=== PATIENT | female | born 1995 | race Caucasian/White ===

== ENCOUNTER → 2020-08-11 | Outpatient (CLI) | payer OTHER ==
[~2020-08-11] MED LIST: ACETAZOLAMIDE250 M1 PO; ASA81BEC PO; ENOXAPARIN80 MG/0.8 SUBQ; IRON325 PO; JANTOVEN6 MG PO; OMEPRAZOLE 20 M20 M1 PO; VITAMIN D325 MC1 PO
== END ==
LOC: M.LAB 13:33
PROVIDERS: ATTEND Surgery
DX: Z01.812 Encounter for preprocedural laboratory examination (principal); Z20.828 Contact with and (suspected) exposure to other viral communicable diseases; R19.00 Intra-abdominal and pelvic swelling, mass and lump, unspecified site

== ENCOUNTER → 2020-08-18 | Day surgery (SDC) | payer OTHER ==
[~2020-08-18] MED LIST changes: +NORCO 10-325 T1 EACH PO
--- NOTE | ~2020-08-18 | OP ---
[facility] [address] [place] [address] OPERATIVE REPORT Name: JUSTIN CASSIDYIANSOILA Santizo Room: [facility]#: [id number] Admission: 08/18/20 Attend Phys: Ivan Bender Discharge: Date of : 89 Report #: [id number] THIS REPORT FOR: //name// cc: Isatu Herr MD, Ghazal A. MD ~ CC: Isatu Bender DATE OF SERVICE: 08/18/2020 PREOPERATIVE DIAGNOSES: 1. Left chest wall mass, 10 x 10 cm. 2. Left medial abdominal wall mass, 5 x 5 cm. 3. Left lateral abdominal wall mass, 5 x 5 cm. POSTOPERATIVE DIAGNOSES: 1. Left chest wall mass, 10 x 10 cm. 2. Left medial abdominal wall mass, 5 x 5 cm. 3. Left lateral abdominal wall mass, 5 x 5 cm. OPERATION: 1. Excision of left chest wall mass, 10 x 10 cm, lipoma. 2. Excision of left medial abdominal wall mass, 5 x 5 cm, lipoma. 3. Excision of left lateral abdominal wall mass, 5 x 5 cm, lipoma. SURGEON: Ivan Bender MD ANESTHESIA: General. ESTIMATED BLOOD LOSS: Minimal. SPECIMENS: 1. Left chest wall mass. 2. Left medial abdominal wall mass. 3. Left lateral abdominal wall mass. DESCRIPTION OF PROCEDURE: After informed consent was obtained, the patient was brought to the operating room and placed supine. SCDs were placed and working, preoperative antibiotics were administered, general anesthesia was induced. The abdomen was prepped and draped in the usual sterile fashion. Area was anesthetized with 1% lidocaine. I first made a 10 cm incision over the left chest wall mass. Cautery dissection was made down through the subcutaneous tissue. This was a large lobular lipoma. This was dissected around with electrocautery. The area was then irrigated after the specimen was removed. Skin was closed with 3-0 Vicryl for the deep layer and 4-0 Monocryl in running subcuticular fashion for the skin. [place] [address] OPERATIVE REPORT Name: DIANE CASSIDY Room: [facility]#: [id number] Admission: 08/18/20 Attend Phys: Ivan Bender Discharge: Date of : 89 Report #: [id number] mass. A 5 cm incision was made. Cautery dissection was made down through the subcutaneous tissue. Mass was excised. This was again a lipoma. Skin was closed again in 2 layers with 3-0 Vicryl and then 4-0 Monocryl. Attention was then directed to the left lateral mass. A 5 cm incision was made. Cautery dissection was made down to the lipoma, which was excised fully. Skin was then closed with a 3-0 Vicryl for the deep layer and 4-0 Monocryl for the skin. Incisions were dressed with Steri-Strips and gauze. Sterile dressings were applied. COMPLICATIONS: None. DISPOSITION: The patient was taken to recovery in satisfactory condition. By: [id number] Bender MD /nt
[2020-08-18 08:19] LABS: HEMATOCRIT 36.2 % (37.0-47.0)
[2020-08-18 08:24] LABS: APTT 26.5 Seconds (25.0-31.3); PROTIME 10.7 Seconds (9.20-11.50)
--- NOTE | 2020-08-20 14:07 | PATH ---
[address] [address] PATHOLOGY RPT PROCEDURE Name: DIANE CASSIDY Room: [facility]#: [id number] Admission: 08/18/20 Date of : 89 Discharge: Report #: [id number] Path Case #: [id number] [facility] Accession Number: [id number] . 01 Material submitted: . PART A: chest - LEFT CHEST WALL MASS. Modifiers: left, wall PART B: abdomen - MEDIAL ABDOMINAL MASS. Modifiers: medial PART C: abdomen - LATERAL ABDOMINAL WALL MASS. Modifiers: lateral, wall . 01 Clinical history: . ABDOMINAL MASS . 02 Diagnosis: A. Left chest wall mass: - Lipoma. . B. Medial abdominal mass: - Consistent with lipoma. . C. Lateral abdominal wall mass: - Consistent with lipoma. (ROBRETO/db; 08/20/2020) LBQ 08/20/2020 1115 Local . 02 Electronically signed: . Blue Dawn MD, Pathologist NPI- [id number] . 01 Gross description: . A. The specimen is received in formalin, labeled "Diane Cassidy, left chest wall mass" and consists of an irregular segment of yellow orange lobulated tissue measuring 12.4 x 9.0 x 3.2 cm. It is inked black and sectioned revealing no gross lesions. Customer Orders Clerk tissue is submitted in A1-A5. . B. The specimen is received in formalin, labeled "Diane Cassidy, medial abdominal mass" and consists of multiple irregular segments of yellow orange lobulated tissue measuring 12.1 x 11.8 x 2.5 cm in aggregate. Sectioning reveals homogeneous yellow orange cut surfaces with no gross lesions. Customer Orders Clerk tissue is submitted in B1-B4. . C. The specimen is received in formalin, labeled "Diane Cassidy, lateral abdominal wall mass" and consists of multiple irregular segments of yellow orange lobulated tissue measuring 7.1 x 5.5 x 2.0 cm. Sectioning reveals homogeneous yellow orange cut surfaces and customer loyalty representative sections are submitted in C1-C2. (LEONARDAY; 08/18/2020) SYU/SYU 08/18/[address] [place] [address] PATHOLOGY RPT PROCEDURE Name: DIANE CASSIDY N Room: [facility]#: [id number] Admission: 08/18/20 Date of : 89 Discharge: Report #: [id number] Path Case #: [id number] . 02 Pathologist provided ICD-10: D17.1 . 02 CPT . 823037, [id number], [id number] Specimen Comment: A courtesy copy of this report has been sent to [phone] Specimen Comment: [phone] Specimen Comment: Report sent to / DR RUIZ Performed at: [address], [place], [place] [id number] MD Franco Dewitt MD Phone: [phone] Performed at: 02 [facility] [address], [place], [place] [id number] MD Blue Dawn MD Phone: [phone]
== END | disposition home or self-care (01) ==
LOC: M.SUR 06:31
PROVIDERS: ATTEND Surgery
DX: D17.1 Benign lipomatous neoplasm of skin and subcutaneous tissue of trunk (principal); R10.9 Unspecified abdominal pain; G43.909 Migraine, unspecified, not intractable, without status migrainosus; F41.9 Anxiety disorder, unspecified; K21.9 Gastro-esophageal reflux disease without esophagitis; F17.210 Nicotine dependence, cigarettes, uncomplicated; Z98.890 Other specified postprocedural states; Z79.899 Other long term (current) drug therapy; Z91.040 Latex allergy status; Z88.8 Allergy status to other drugs, medicaments and biological substances; Z79.01 Long term (current) use of anticoagulants